=== PATIENT | male | born 1965 | race Caucasian/White ===

== ENCOUNTER 2017-05-17 19:57 | Emergency (ER) | payer BC ==
[~2017-05-17] VITALS: Ht 170.2 cm; Wt 72.6 kg
== END 2017-05-17 22:20 | disposition short-term general hospital (02) ==
LOC: ER 19:57
DX: K12.2 Cellulitis and abscess of mouth (principal); E86.0 Dehydration; F17.210 Nicotine dependence, cigarettes, uncomplicated
CPT/HCPCS: J0696; J1885